=== PATIENT | female | born 1950 | race Caucasian/White ===

== ENCOUNTER 2017-10-06 09:08 | Emergency (ER) | payer MEDICARE, MEDICAID ==
[~2017-10-06] VITALS: Ht 172.7 cm; Wt 94.8 kg
[~2017-10-06 09:08] MED LIST: CYCL-394 PO; ESCI20TA29 PO; FEXO30TA7 PO; IBUP-1984 PO; MELA1LIQ PO; NAPR-56 PO; NORCO10T PO; OMEP40CA37 PO
[2017-10-06] MEDS ORDERED: ketorolac trometh inj. 60 MG/2 ML VIAL IM ONE (09:40)
[2017-10-06] MEDS ORDERED: triamcinolone acetonide 40mg/ml inj IM ONE (10:05)
[2017-10-06] MEDS ORDERED: KETO10TA2 PO (10:17)
[2017-10-06 10:42] VITALS: BP 108/64
== END 2017-10-06 10:43 | disposition home or self-care (01) ==
LOC: ER 09:10
DX: M54.32 Sciatica, left side (principal); M25.552 Pain in left hip; K21.9 Gastro-esophageal reflux disease without esophagitis; G89.29 Other chronic pain; F12.10 Cannabis abuse, uncomplicated; Z90.49 Acquired absence of other specified parts of digestive tract; Z98.890 Other specified postprocedural states; Z88.5 Allergy status to narcotic agent; Z79.899 Other long term (current) drug therapy
CPT/HCPCS: 73502; 96372; 99284; J1885; J3301

== ENCOUNTER 2019-03-01 10:48 | Emergency (ER) | payer MEDICARE, MEDICAID ==
[~2019-03-01] VITALS: Ht 172.7 cm; Wt 100.0 kg
[~2019-03-01 10:48] MED LIST changes: +KETO10TA2 PO; +OMEP40CA13 PO; -OMEP40CA37 PO
[2019-03-01 11:32] VITALS: BP 135/75
[2019-03-01 11:35] LABS: CLARITY,URINE CLOUDY (Clear); COLOR,URINE YELLOW (Yellow); GLUCOSE, URINE NEGATIVE (Neg); KETONES,URINE NEGATIVE (Neg); LEUKOCYTE ESTERASE ,URINE NEGATIVE (Neg); NITRITES, URINE NEGATIVE (Neg); OCCULT BLOOD,URINE NEGATIVE (Neg); PROTEIN,URINE NEGATIVE (Neg)
[2019-03-01 11:37] LABS: UA COLLECTION TYPE CLN CATCH MIDSTREAM
[2019-03-01 11:42] LABS: BACTERIA,URINE FEW /HPF (Neg); MUCUS STRANDS MANY /LPF (Neg); SQUAMOUS EPITHELIAL CELL,UR MANY /LPF (FEW); WBC,URINE 0-4 /HPF (0-4)
[2019-03-01 11:43] LABS: RBC,URINE 0-2 /HPF (0-2)
--- NOTE | 2019-03-01 11:52 | NUR ---
no provider has signed up for this pt yet, will make crn aware.
[2019-03-01] MEDS ORDERED: CYCL-1 PO (12:28)
[2019-03-01] MEDS ORDERED: orphenadrine citrate 60mg/2ml inj. IM ONE (12:30)
[2019-03-01] MEDS ORDERED: HYDROcodone/acetaminophen 10/325mg tab PO ONE (12:30)
== END 2019-03-01 12:49 | disposition home or self-care (01) ==
LOC: ER 10:49
DX: M54.5 Low back pain (principal); R07.81 Pleurodynia; G89.29 Other chronic pain; K21.9 Gastro-esophageal reflux disease without esophagitis; F41.9 Anxiety disorder, unspecified; F12.90 Cannabis use, unspecified, uncomplicated; Z88.6 Allergy status to analgesic agent; Z79.899 Other long term (current) drug therapy; Z90.49 Acquired absence of other specified parts of digestive tract; Z98.890 Other specified postprocedural states; W06.XXXA Fall from bed, initial encounter; Y93.89 Activity, other specified; Y92.89 Other specified places as the place of occurrence of the external cause; Y99.8 Other external cause status
CPT/HCPCS: 81001; 96372; 99283; J2360

== ENCOUNTER 2021-05-15 21:11 | Inpatient (IN) | payer MEDICARE, MEDICAID ==
[~2021-05-15] VITALS: Ht 172.7 cm; Wt 109.1 kg
[~2021-05-15 21:11] MED LIST changes: +ASPI-109 PO; +CALC-331 PO; +CHOL400C8 PO; +CITRUCEL PO; +CYAN500T71 PO; +CYCL-1 PO; +DENO60DI SQ; +ESCI10TA PO; +FERR-119 PO; +HYDR-4353 PO; +MECL-159 PO; +MULT-620 PO; +OMEP20CA15 PO; -OMEP40CA13 PO; +OMEP40CA21 PO; +UBID50TA3 PO; +VITE1000C PO
[2021-05-15] MEDS ORDERED: heparin 10,000 units/1 ML INJ IV ONE (21:20)
[2021-05-15] MEDS ORDERED: heparin 25,000 UNIT/250ml bag 250 ML IV SCH (21:20)
[2021-05-15] MEDS ORDERED: morphine 4 MG/ML inj SYRINge IV ONE (21:20)
[2021-05-15] MEDS ORDERED: ondansetron/PF 4mg/2ml inj IV ONE (21:20)
[2021-05-15] MEDS ORDERED: heparin 10,000 units/1 ML INJ IV PRN (21:20)
[2021-05-15 21:32] LABS: BASOPHILS % (AUTO) 0.5 % (0-1); EOSINOPHILS # (AUTO) 0.3 X10'3 (0-0.9); HEMATOCRIT 39.9 % (35.0-45.0); HEMOGLOBIN 13.1 g/dl (12.0-16.0); MEAN CORPUSCULAR HGB CONC 32.9 g/dL (33.0-36.5); MEAN PLATELET VOLUME 8.1 FL (7.4-10.4); MONOCYTES # (AUTO) 0.4 X10'3 (0-0.9)
[2021-05-15 21:34] LABS: EOSINOPHILS % (AUTO) 3.7 % (0-6); MEAN CORPUSCULAR HEMOGLOBIN 27.4 PG (27.0-31.0); MEAN CORPUSCULAR VOLUME 83.3 FL (78-98); MONOCYTES % (AUTO) 5.5 % (2-12); NEUTROPHILS # (AUTO) 4.3 X10'3 (1.8-7.7); NEUTROPHILS % (AUTO) 53.3 % (42-75); PLATELET COUNT 208 X10'3 (140-440); RED BLOOD COUNT 4.79 X10'6 (4.20-5.60); RED CELL DISTRIBUTION WIDTH 15.6 % (11.5-14.5); WHITE BLOOD COUNT 8.1 X10'3 (4.5-11.0)
[2021-05-15] MEDS ORDERED: iohexol 350MG/ML 100ml bottle IV ONE (21:36)
[2021-05-15] MEDS ORDERED: LIDOcaine 1% (10mg/ml)w/preservative injection 20ml MDV ONE (21:36)
[2021-05-15] MEDS ORDERED: midazolam 1 mg/ML 2ml injection ONE (21:36)
[2021-05-15] MEDS ORDERED: heparin 1,000unit/ml 10ml vial 10 ML ONE (21:36)
[2021-05-15] MEDS ORDERED: fentaNYL/PF 50MCG/1 ML 2ML syringe ONE (21:36)
[2021-05-15] MEDS ORDERED: iohexol 350 MG/1 ML 200ml bottle ONE (21:42)
[2021-05-15 21:45] LABS: ALANINE AMINOTRANSFERASE 51 U/L (12-78); ALBUMIN/GLOBULIN RATIO 0.8 (1.1-1.5); ALKALINE PHOSPHATASE 109 IU/L (46-116); ANION GAP 12 (8-16); ASPARTATE AMINO TRANSFERASE 30 U/L (10-37); BILIRUBIN,TOTAL 0.3 MG/DL (0.1-1.0); BLOOD UREA NITROGEN 14 MG/DL (7-18); BUN/CREATININE RATIO 15.1 (6.6-38.0); CALCIUM 8.5 MG/DL (8.5-10.1); CHLORIDE 106 MMOL/L (99-107); CREATININE 0.93 MG/DL (0.40-0.90); GLUCOSE 142 MG/DL (70-104); POTASSIUM 3.9 MMOL/L (3.5-5.1); SODIUM 143 MMOL/L (135-145); TOTAL CARBON DIOXIDE 25.4 MMOL/L (24-32); TOTAL PROTEIN 6.8 G/DL (6.4-8.2); eGFR 60 ML/MIN
--- NOTE | 2021-05-15 21:47 | NUR ---
matlab developer team at the bedside.
[2021-05-15 21:54] LABS: MAGNESIUM 2.1 MG/DL (1.5-2.4)
[2021-05-15] MEDS ORDERED: hydrocortisone sod succ/PF 100mg/2ml inj. ONE (22:23)
[2021-05-15] MEDS ORDERED: diphenhydrAMINE 50 mg/ml inj ONE (22:23)
[2021-05-15] MEDS ORDERED: atropine 0.1mg/ml 10ml syringe ONE (22:28)
[2021-05-15] MEDS ORDERED: ticagrelor 90mg tablet ONE (22:51)
[2021-05-15 23:30] VITALS: BP 131/65
--- NOTE | 2021-05-15 23:43 | NUR ---
Patient received per bed from porcelain enamel laborer after procedure. patient is alert and oriented. VS taken and recorded.
[2021-05-15 23:49] VITALS: BP 132/63
[2021-05-16] VITALS (12 sets, daily range): BP systolic 108–137; BP diastolic 55–78
[2021-05-16] MEDS ORDERED: HYDROcodone/acetaminophen 5mg/325mg tablet PO PRN (00:25)
[2021-05-16] MEDS ORDERED: proCHLORperazine 10 MG/2 ml inj IV PRN (00:25)
[2021-05-16] MEDS ORDERED: normal saline 1000ml 400 ML IV ONE (00:30)
[2021-05-16] MEDS: HYDROcodone/acetaminophen 10/325mg tab PO PRN ×4 (05:37→19:44)
[2021-05-16 06:31] LABS: BASOPHILS % (AUTO) 0.1 % (0-1); EOSINOPHILS % (AUTO) 0 % (0-6); HEMOGLOBIN 12.6 g/dl (12.0-16.0); LYMPHOCYTES # (AUTO) 0.9 X10'3 (1.1-4.8); LYMPHOCYTES % (AUTO) 15.5 % (21-51); MEAN CORPUSCULAR HEMOGLOBIN 27.4 PG (27.0-31.0); MEAN CORPUSCULAR HGB CONC 33.3 g/dL (33.0-36.5); MEAN CORPUSCULAR VOLUME 82.3 FL (78-98); MEAN PLATELET VOLUME 7.9 FL (7.4-10.4); MONOCYTES # (AUTO) 0.2 X10'3 (0-0.9); MONOCYTES % (AUTO) 2.5 % (2-12); NEUTROPHILS % (AUTO) 81.9 % (42-75); PLATELET COUNT 196 X10'3 (140-440); RED BLOOD COUNT 4.61 X10'6 (4.20-5.60); RED CELL DISTRIBUTION WIDTH 15.6 % (11.5-14.5); WHITE BLOOD COUNT 6.1 X10'3 (4.5-11.0)
--- NOTE | 2021-05-16 07:08 | NUR ---
Patient in room PCU 3013. I have received report from Aubrey HENDERSON and had the opportunity to ask questions and assume patient care. pt supine in bed, endorsing wanting breakfast. pt with pain to left hip, minimal pain to right groin puncture site. no hematoma present, though small amount roman drainage on gauze. no s/sx complication s/p heart cath. pt alert, no sob, safety education completed and measures in place. no s/sx acute distress
[2021-05-16] MEDS: ticagrelor 90mg tablet PO SCH ×2 (09:03→19:46)
[2021-05-16] MEDS: metoprolol tartrate 25mg tablet PO SCH ×2 (09:03→19:46)
[2021-05-16] MEDS: ondansetron/PF 4mg/2ml inj IV PRN ×2 (09:48→19:46)
[2021-05-16 10:39] LABS: ANION GAP 10 (8-16); BLOOD UREA NITROGEN 14 MG/DL (7-18); BUN/CREATININE RATIO 17.9 (6.6-38.0); CALCIUM 8.9 MG/DL (8.5-10.1); CHLORIDE 106 MMOL/L (99-107); CHOL/HDL RATIO 3.4 (0.00-4.99); CHOLESTEROL 182 MG/DL (0-200); CREATININE 0.78 MG/DL (0.40-0.90); GLUCOSE 145 MG/DL (70-104); HDL CHOLESTEROL 53 MG/DL (35-60); LDL CHOLESTEROL 113 MG/DL (50-100); POTASSIUM 4.4 MMOL/L (3.5-5.1); SODIUM 140 MMOL/L (135-145); TOTAL CARBON DIOXIDE 24.4 MMOL/L (24-32); TRIGLYCERIDES 61 MG/DL (20-135); eGFR 73 ML/MIN
[2021-05-16] MEDS ORDERED: MELA5CAP PO (12:53)
[2021-05-16] MEDS ORDERED: ROMO105S INJ (12:53)
[2021-05-16] MEDS ORDERED: ESCI20TA39 PO (12:53)
[2021-05-16] MEDS ORDERED: ARIP10TA8 PO (12:53)
[2021-05-16] MEDS ORDERED: CALC-723 PO (12:53)
[2021-05-16] MEDS ORDERED: OMEP40CA21 PO (12:53)
[2021-05-16] MEDS ORDERED: HYDROcodone/acetaminophen 10/325mg tab PO PRN (14:00)
--- NOTE | 2021-05-16 14:25 | NUR ---
pharmacy paged for abilify dose.
[2021-05-16] MEDS: aspirin 81mg tab.chew PO SCH (14:38)
[2021-05-16] MEDS: ESCITALOPRAM OXALATE 5 MG TABLET PO SCH (14:39)
[2021-05-16] MEDS: ARIPIPRAZOLE 10 MG TABLET PO SCH (15:32)
[2021-05-16] MEDS ORDERED: pantoprazole 40mg Tablet.DR PO ONE (17:10)
--- NOTE | 2021-05-16 18:28 | NUR ---
Problems reprioritized. Patient report given, questions answered & plan of care reviewed with Shayna HENDERSON. Pt content sitting up working on dinner. no s/sx acute distress
[2021-05-16] MEDS: calcium carbonate/vitamin D3 tablet PO SCH (19:44)
[2021-05-16] MEDS ORDERED: loperamide 2mg capsule PO PRN (22:35)
[2021-05-17 02:00] VITALS: BP 142/51
[2021-05-17] MEDS: HYDROcodone/acetaminophen 10/325mg tab PO PRN ×2 (05:17→09:41)
[2021-05-17 06:43] LABS: BASOPHILS % (AUTO) 0.4 % (0-1); EOSINOPHILS # (AUTO) 0.3 X10'3 (0-0.9); EOSINOPHILS % (AUTO) 4.2 % (0-6); HEMOGLOBIN 12.8 g/dl (12.0-16.0); LYMPHOCYTES # (AUTO) 2.5 X10'3 (1.1-4.8); LYMPHOCYTES % (AUTO) 32.1 % (21-51); MEAN CORPUSCULAR HEMOGLOBIN 27.5 PG (27.0-31.0); MEAN CORPUSCULAR HGB CONC 32.8 g/dL (33.0-36.5); MEAN CORPUSCULAR VOLUME 83.9 FL (78-98); MEAN PLATELET VOLUME 8.1 FL (7.4-10.4); MONOCYTES # (AUTO) 0.5 X10'3 (0-0.9); MONOCYTES % (AUTO) 6.9 % (2-12); NEUTROPHILS # (AUTO) 4.4 X10'3 (1.8-7.7); NEUTROPHILS % (AUTO) 56.4 % (42-75); PLATELET COUNT 189 X10'3 (140-440); RED BLOOD COUNT 4.65 X10'6 (4.20-5.60); RED CELL DISTRIBUTION WIDTH 15.7 % (11.5-14.5); WHITE BLOOD COUNT 7.8 X10'3 (4.5-11.0)
--- NOTE | 2021-05-17 06:44 | NUR ---
Patient in room PCU 3013. I have received report from Shayna HENDERSON and had the opportunity to ask questions and assume patient care. Pt semi fowlers in bed, chest rising and falling evenly, 02/nc/2lpm. no s/sx acute distress. safety measures in place.
[2021-05-17] MEDS ORDERED: pantoprazole 40mg Tablet.DR PO SCH (07:30)
[2021-05-17] MEDS ORDERED: atorvastatin 20mg tablet PO SCH (08:00)
[2021-05-17] MEDS: aspirin 81mg tab.chew PO SCH (08:03)
[2021-05-17] MEDS: ESCITALOPRAM OXALATE 5 MG TABLET PO SCH (08:03)
[2021-05-17] MEDS: ARIPIPRAZOLE 10 MG TABLET PO SCH (08:03)
[2021-05-17] MEDS: ticagrelor 90mg tablet PO SCH (08:03)
[2021-05-17] MEDS: calcium carbonate/vitamin D3 tablet PO SCH (08:03)
[2021-05-17 08:04] VITALS: BP_SYST 100
[2021-05-17] MEDS: metoprolol tartrate 25mg tablet PO SCH (08:04)
[2021-05-17 09:40] LABS: ANION GAP 9 (8-16); BLOOD UREA NITROGEN 17 MG/DL (7-18); BUN/CREATININE RATIO 19.3 (6.6-38.0); CALCIUM 9.5 MG/DL (8.5-10.1); CHLORIDE 104 MMOL/L (99-107); CREATININE 0.88 MG/DL (0.40-0.90); GLUCOSE 95 MG/DL (70-104); POTASSIUM 4.3 MMOL/L (3.5-5.1); SODIUM 136 MMOL/L (135-145); TOTAL CARBON DIOXIDE 23.5 MMOL/L (24-32); eGFR 64 ML/MIN
[2021-05-17] MEDS ORDERED: ATOR20TA66 PO (10:25)
[2021-05-17] MEDS ORDERED: LOP25T PO (10:25)
[2021-05-17] MEDS ORDERED: TICA90TA PO (10:25)
[2021-05-17] MEDS ORDERED: ASPI81TA53 PO (10:25)
--- NOTE | 2021-05-17 12:25 | NUR ---
Pt stable for discharge per MD orders. All discharge instructions reviewed with pt and her daughter. all questions answered. new rx escripted and then subsequently called into [facility] [address]. pt has existing follow up appointment in two weeks with PCP. PIV discontinued. Cannula intact. youth nutritional monitor discontinued. belongings collected and sent with the pt. pt wheeled to the lobby accompanied by her daughter. no s/sx acute distress. pt left in private vehicle.
[2021-05-25] MEDS ORDERED: FURO-150 PO (10:36)
[2021-05-25] MEDS ORDERED: POTA10TA37 PO (10:36)
== END 2021-05-17 14:30 | disposition home or self-care (01) | DRG 246 ==
LOC: ER 21:12 → PCU 3S 22:50 → UNDOADMIN 22:50
PROVIDERS: ADMIT Internal Medicine Interventional Cardiology; ATTEND Internal Medicine Interventional Cardiology
PROC: 027034Z Dilation of Coronary Artery, One Artery with Drug-eluting Intraluminal Device, Percutaneous Approach (ICD-10-PCS; principal; 2021-05-15)
PROC: 4A023N7 Measurement of Cardiac Sampling and Pressure, Left Heart, Percutaneous Approach (ICD-10-PCS; 2021-05-15)
PROC: B2181ZZ Fluoroscopy of Left Internal Mammary Bypass Graft using Low Osmolar Contrast (ICD-10-PCS; 2021-05-15)
PROC: B2171ZZ Fluoroscopy of Right Internal Mammary Bypass Graft using Low Osmolar Contrast (ICD-10-PCS; 2021-05-15)
PROC: B2111ZZ Fluoroscopy of Multiple Coronary Arteries using Low Osmolar Contrast (ICD-10-PCS; 2021-05-15)
PROC: B2131ZZ Fluoroscopy of Multiple Coronary Artery Bypass Grafts using Low Osmolar Contrast (ICD-10-PCS; 2021-05-15)
DX: I21.11 ST elevation (STEMI) myocardial infarction involving right coronary artery (principal); I50.31 Acute diastolic (congestive) heart failure; I25.10 Atherosclerotic heart disease of native coronary artery without angina pectoris; F12.90 Cannabis use, unspecified, uncomplicated; F41.9 Anxiety disorder, unspecified; G47.33 Obstructive sleep apnea (adult) (pediatric); G89.29 Other chronic pain; K21.9 Gastro-esophageal reflux disease without esophagitis; E66.01 Morbid (severe) obesity due to excess calories; Z96.649 Presence of unspecified artificial hip joint; M19.90 Unspecified osteoarthritis, unspecified site; I35.0 Nonrheumatic aortic (valve) stenosis; M54.9 Dorsalgia, unspecified; E78.5 Hyperlipidemia, unspecified; I10 Essential (primary) hypertension; Z20.822 Contact with and (suspected) exposure to COVID-19; Z87.891 Personal history of nicotine dependence; Z90.49 Acquired absence of other specified parts of digestive tract; Z95.1 Presence of aortocoronary bypass graft; Z88.5 Allergy status to narcotic agent; Z91.041 Radiographic dye allergy status; Z68.36 Body mass index [BMI] 36.0-36.9, adult; Z79.899 Other long term (current) drug therapy; Z79.82 Long term (current) use of aspirin; Z71.3 Dietary counseling and surveillance
CPT/HCPCS: 93306; 93454; 99291; C9606; 36415; 71045; 80048; 80053; 80061; 83735; 83880; 84484; 85025; 85610; 87081; 87635; 93005; 99152; 99153; A4620; A6258; C1725; C1751; C1760; C1769; C1874; C9803; G0378; J0461; J1200; J1644; J1720; J2250; J2270; J2405; J3010; J3490; J7030; Q9967

== ENCOUNTER 2022-04-20 14:55 | Emergency (ER) | payer MEDICARE, MEDICAID ==
[~2022-04-20] VITALS: Ht 172.7 cm; Wt 113.0 kg
[~2022-04-20 14:55] MED LIST changes: +ARIP10TA14 PO; -ASPI-109 PO; +ASPI81TA53 PO; +ATOR20TA66 PO; -CALC-331 PO; -CHOL400C8 PO; -CITRUCEL PO; -CYAN500T71 PO; -CYCL-1 PO; -CYCL-394 PO; -DENO60DI SQ; -ESCI10TA PO; -ESCI20TA29 PO; +ESCI20TA39 PO; -FERR-119 PO; -FEXO30TA7 PO; +FURO-150 PO; -HYDR-4353 PO; -IBUP-1984 PO; -KETO10TA2 PO; -MECL-159 PO; -MELA1LIQ PO; +MELA5CAP PO; -MULT-620 PO; -NAPR-56 PO; -OMEP20CA15 PO; +POTA-206 PO; +ROMO105S INJ; +TICA90TA PO; -UBID50TA3 PO; -VITE1000C PO
--- NOTE | 2022-04-20 17:40 | NUR ---
Pt with an episode of dyspnea and expiratory wheezing. O2 od 89% on room air. Pt placed on 4L nasal cannula which she states she is usually on at home. She states she wears home o2 90% of the time but she does not have travel O2. Pt's O2 sats improved to 97% on 4L of oxygen.
[2022-04-20 17:41] VITALS: BP 100/77
== END 2022-04-20 20:33 | disposition home or self-care (01) ==
LOC: ER 14:56
DX: Z00.00 Encounter for general adult medical examination without abnormal findings (principal); K21.9 Gastro-esophageal reflux disease without esophagitis; G89.29 Other chronic pain; M54.50 Low back pain, unspecified; Z91.041 Radiographic dye allergy status; Z88.5 Allergy status to narcotic agent; Z88.8 Allergy status to other drugs, medicaments and biological substances; Z98.890 Other specified postprocedural states
CPT/HCPCS: 99281

== ENCOUNTER 2022-05-03 22:53 | Inpatient (IN) | payer MEDICARE, MEDICAID ==
[~2022-05-03] VITALS: Ht 170.2 cm; Wt 113.6 kg
[2022-05-03 23:43] LABS: BASOPHILS % (AUTO) 0.3 % (0-1); EOSINOPHILS # (AUTO) 0.3 X10'3 (0-0.9); EOSINOPHILS % (AUTO) 3.3 % (0-6); HEMATOCRIT 36.9 % (35.0-45.0); HEMOGLOBIN 11.9 g/dl (12.0-16.0); LYMPHOCYTES % (AUTO) 21.9 % (21-51); MEAN CORPUSCULAR HEMOGLOBIN 25.8 PG (27.0-31.0); MEAN CORPUSCULAR HGB CONC 32.3 g/dL (33.0-36.5); MEAN PLATELET VOLUME 7.8 FL (7.4-10.4); MONOCYTES # (AUTO) 0.5 X10'3 (0-0.9); MONOCYTES % (AUTO) 5.6 % (2-12); NEUTROPHILS # (AUTO) 6.3 X10'3 (1.8-7.7); NEUTROPHILS % (AUTO) 68.9 % (42-75); PLATELET COUNT 215 X10'3 (140-440); RED BLOOD COUNT 4.61 X10'6 (4.20-5.60); RED CELL DISTRIBUTION WIDTH 16.7 % (11.5-14.5); WHITE BLOOD COUNT 9.1 X10'3 (4.5-11.0)
[2022-05-03 23:50] LABS: ALANINE AMINOTRANSFERASE 9 U/L (12-78); ALBUMIN 3.1 G/DL (3.4-5.0); ALBUMIN/GLOBULIN RATIO 0.9 (1.1-1.5); ALKALINE PHOSPHATASE 101 IU/L (46-116); ANION GAP 4 (8-16); ASPARTATE AMINO TRANSFERASE 19 U/L (10-37); BILIRUBIN,TOTAL 0.4 MG/DL (0.1-1.0); BLOOD UREA NITROGEN 16 MG/DL (7-18); BUN/CREATININE RATIO 18.8 (6.6-38.0); CHLORIDE 105 MMOL/L (99-107); CREATININE 0.85 MG/DL (0.40-0.90); GLUCOSE 114 MG/DL (70-104); POTASSIUM 3.6 MMOL/L (3.5-5.1); SODIUM 138 MMOL/L (135-145); TOTAL CARBON DIOXIDE 28.8 MMOL/L (24-32); TOTAL PROTEIN 6.7 G/DL (6.4-8.2); eGFR 66 ML/MIN
[2022-05-04] MEDS ORDERED: furosemide 10 MG/1 ML 10ml inj IV ONE (00:35)
[2022-05-04 01:32] LABS: ABG BASE EXCESS 1.8 mmol/L (-2.0-2.0); ABG HCO3 26.5 mmol/L (22.0-26.0); ABG OXYGEN SATURATION 94.3 % (94-97); ABG PCO2 (T) 41.3 mmHg (32.0-45.0); ABG PO2 (T) 71.3 mmHg (75.0-100.0); ALLEN'S TEST POSITIVE; FCOHb 0.7 % (0.0-3.9); FMetHb 0.1 % (0.0-1.5); FO2Hb 93.5 % (94-97); PATIENT TEMPERATURE 36.8; TOTAL HEMOGLOBIN 13.3 G/dl (12.0-16.0)
[2022-05-04] MEDS ORDERED: ondansetron/PF 4mg/2ml inj IV PRN (01:55)
[2022-05-04] MEDS ORDERED: acetaminophen 325mg tablet PO PRN ×2 (01:55)
[2022-05-04] MEDS ORDERED: morphine 2 MG/ML inj. syringe IV PRN ×2 (01:55)
[2022-05-04] MEDS ORDERED: magnesium hydroxide 30ml (MOM) UD suspension PO PRN (01:55)
[2022-05-04] MEDS ORDERED: mag hydrox/Alum hydrox/simeth 30ml oral suspension PO PRN (01:55)
--- NOTE | 2022-05-04 05:03 | NUR ---
pt placed on hospital bed
[2022-05-04] MEDS: enoxaparin 40mg/0.4ml syringe SUBCUT SCH (09:51)
[2022-05-04] MEDS: docusate sod 100mg capsule PO SCH ×2 (09:51→19:33)
[2022-05-04] MEDS: furosemide 40mg/4ml inj IV SCH ×2 (09:51→19:36)
[2022-05-04 17:20] VITALS: BP 93/75
--- NOTE | 2022-05-04 17:20 | NUR ---
Pt transferred from ER to 302 via bed. Pt awake and alert. VSS. Pt denied any pain or discomfort at this time. Call light within reach and instructed to use for assistance.
[2022-05-04 18:00] VITALS: BP 109/89
[2022-05-04] MEDS: HYDROcodone/acetaminophen 5mg/325mg tablet PO PRN (19:08)
[2022-05-04] MEDS ORDERED: NYST15OI14 TOP (20:25)
[2022-05-04] MEDS ORDERED: ALBU18HF2 PO (20:25)
[2022-05-04] MEDS ORDERED: FURO20TA4 PO (20:25)
[2022-05-04] MEDS ORDERED: ARIP10TA57 PO (20:25)
[2022-05-04] MEDS ORDERED: HYDR-3972 PO (20:25)
[2022-05-04] MEDS ORDERED: POTA10CA45 PO (20:25)
[2022-05-04] MEDS ORDERED: CLOP75TA34 PO (20:25)
[2022-05-04] MEDS ORDERED: ATOR40TA72 PO (20:25)
[2022-05-04 22:06] VITALS: BP 118/62
[2022-05-05] MEDS: HYDROcodone/acetaminophen 5mg/325mg tablet PO PRN ×2 (00:12→07:15)
[2022-05-05 01:55] VITALS: BP 141/64
[2022-05-05 06:00] VITALS: BP 141/75
[2022-05-05 07:00] LABS: BASOPHILS % (AUTO) 0.3 % (0-1); EOSINOPHILS # (AUTO) 0.3 X10'3 (0-0.9); EOSINOPHILS % (AUTO) 3.1 % (0-6); HEMATOCRIT 38.5 % (35.0-45.0); HEMOGLOBIN 12.3 g/dl (12.0-16.0); LYMPHOCYTES # (AUTO) 2.5 X10'3 (1.1-4.8); LYMPHOCYTES % (AUTO) 30.2 % (21-51); MEAN CORPUSCULAR HEMOGLOBIN 25.9 PG (27.0-31.0); MEAN CORPUSCULAR HGB CONC 31.9 g/dL (33.0-36.5); MONOCYTES # (AUTO) 0.6 X10'3 (0-0.9); MONOCYTES % (AUTO) 7.4 % (2-12); NEUTROPHILS # (AUTO) 4.9 X10'3 (1.8-7.7); PLATELET COUNT 231 X10'3 (140-440); RED BLOOD COUNT 4.76 X10'6 (4.20-5.60); RED CELL DISTRIBUTION WIDTH 16.5 % (11.5-14.5); WHITE BLOOD COUNT 8.3 X10'3 (4.5-11.0)
[2022-05-05] MEDS: furosemide 40mg/4ml inj IV SCH (07:14)
[2022-05-05] MEDS: docusate sod 100mg capsule PO SCH (07:15)
[2022-05-05] MEDS: enoxaparin 40mg/0.4ml syringe SUBCUT SCH (07:15)
[2022-05-05 07:23] LABS: ALBUMIN 3.1 G/DL (3.4-5.0); ANION GAP 6 (8-16); BLOOD UREA NITROGEN 24 MG/DL (7-18); BUN/CREATININE RATIO 27.3 (6.6-38.0); CALCIUM 9.5 MG/DL (8.5-10.1); CHLORIDE 102 MMOL/L (99-107); CREATININE 0.88 MG/DL (0.40-0.90); GLUCOSE 122 MG/DL (70-104); POTASSIUM 3.6 MMOL/L (3.5-5.1); SODIUM 138 MMOL/L (135-145); TOTAL CARBON DIOXIDE 30.5 MMOL/L (24-32); eGFR 64 ML/MIN
[2022-05-05] MEDS ORDERED: FURO20TA4 PO (10:32)
[2022-05-05] MEDS ORDERED: ALBU18HF2 PO (10:32)
[2022-05-05] MEDS ORDERED: PRED10TA23 PO (10:32)
--- NOTE | 2022-05-05 11:45 | NUR ---
pt discharged in stable condition via wheelchair to family waiting on lobby. discharge instructions and education reviewed with pt. questions/concerns addressed. tele and IV d/c'd.
== END 2022-05-05 11:44 | disposition home or self-care (01) | DRG 189 ==
LOC: ER 22:54 → ED HOLD 05-04 01:57 → EDBEDREQ 05-04 15:35 → PCU 3S 05-04 17:08
PROVIDERS: ADMIT Internal Medicine; ATTEND Internal Medicine
DX: J96.21 Acute and chronic respiratory failure with hypoxia (principal); E66.01 Morbid (severe) obesity due to excess calories; E78.5 Hyperlipidemia, unspecified; I25.10 Atherosclerotic heart disease of native coronary artery without angina pectoris; I27.81 Cor pulmonale (chronic); Z96.659 Presence of unspecified artificial knee joint; F32.A Depression, unspecified; F41.9 Anxiety disorder, unspecified; G89.29 Other chronic pain; K21.9 Gastro-esophageal reflux disease without esophagitis; M54.9 Dorsalgia, unspecified; Z96.643 Presence of artificial hip joint, bilateral; I50.9 Heart failure, unspecified; Z68.39 Body mass index [BMI] 39.0-39.9, adult; I25.2 Old myocardial infarction; Z79.02 Long term (current) use of antithrombotics/antiplatelets; Z79.899 Other long term (current) drug therapy; Z87.891 Personal history of nicotine dependence; Z90.49 Acquired absence of other specified parts of digestive tract; Z95.1 Presence of aortocoronary bypass graft; Z88.5 Allergy status to narcotic agent; Z91.041 Radiographic dye allergy status
CPT/HCPCS: 36415; 36600; 71045; 80048; 80053; 82803; 83880; 84484; 85018; 85025; 87081; 93005; 93306; 96374; 99285; G0378; J1650; J1940

== ENCOUNTER 2022-07-18 12:11 | Emergency (ER) | payer MEDICARE, MEDICAID ==
[~2022-07-18] VITALS: Ht 172.7 cm; Wt 113.6 kg
[~2022-07-18 12:11] MED LIST changes: +ALBU18HF2 PO; -ARIP10TA14 PO; +ARIP10TA57 PO; +ASPI-1265 PO; -ASPI81TA53 PO; -ATOR20TA66 PO; +ATOR40TA72 PO; +CLOP75TA34 PO; +EMPA10TA PO; +HYDR-3972 PO; +LEVO-65 PO; -MELA5CAP PO; -NORCO10T PO; +NYST15OI14 TOP; +OMEP20TA43 PO; -OMEP40CA21 PO; -POTA-206 PO; +POTA10CA45 PO; +PRED10TA23 PO; -ROMO105S INJ; -TICA90TA PO
[2022-07-18] MEDS ORDERED: HYDROcodone/acetaminophen 10/325mg tab PO ONE (12:50)
[2022-07-18] MEDS ORDERED: albuterol 2.5 MG/3 ML nebule NEB ONE (12:50)
[2022-07-18] MEDS ORDERED: ketorolac trometh. 30mg/ml inj. IM ONE (12:50)
[2022-07-18 15:10] VITALS: BP 149/85
== END 2022-07-18 15:12 | disposition home or self-care (01) ==
LOC: ER 12:11
DX: G89.29 Other chronic pain (principal); M54.59 Other low back pain; J44.9 Chronic obstructive pulmonary disease, unspecified; I11.0 Hypertensive heart disease with heart failure; F41.9 Anxiety disorder, unspecified; K21.9 Gastro-esophageal reflux disease without esophagitis; Z88.5 Allergy status to narcotic agent; Z88.8 Allergy status to other drugs, medicaments and biological substances; Z79.899 Other long term (current) drug therapy; Z79.82 Long term (current) use of aspirin
CPT/HCPCS: 94640; 96372; 99284; J1885; 94760

== ENCOUNTER 2022-08-23 13:02 | Inpatient (IN) | payer MEDICARE, MEDICAID ==
[~2022-08-23] VITALS: Ht 177.8 cm; Wt 113.6 kg
[~2022-08-23 13:02] MED LIST changes: -LEVO-65 PO; -PRED10TA23 PO
[2022-08-23 14:00] LABS: BASOPHILS % (AUTO) 0.1 % (0-1); EOSINOPHILS % (AUTO) 0.1 % (0-6); HEMATOCRIT 38.1 % (35.0-45.0); HEMOGLOBIN 12.1 g/dl (12.0-16.0); LYMPHOCYTES # (AUTO) 1.9 X10'3 (1.1-4.8); LYMPHOCYTES % (AUTO) 7.9 % (21-51); MEAN CORPUSCULAR HGB CONC 31.6 g/dL (33.0-36.5); MEAN PLATELET VOLUME 7.9 FL (7.4-10.4); MONOCYTES % (AUTO) 8.5 % (2-12); NEUTROPHILS % (AUTO) 83.4 % (42-75); PLATELET COUNT 221 X10'3 (140-440); RED BLOOD COUNT 5.02 X10'6 (4.20-5.60); RED CELL DISTRIBUTION WIDTH 20.5 % (11.5-14.5); WHITE BLOOD COUNT 23.9 X10'3 (4.5-11.0)
[2022-08-23 14:17] LABS: ALANINE AMINOTRANSFERASE 27 U/L (12-78); ALBUMIN 2.9 G/DL (3.4-5.0); ALBUMIN/GLOBULIN RATIO 0.9 (1.1-1.5); ALKALINE PHOSPHATASE 83 IU/L (46-116); ANION GAP 5 (8-16); ASPARTATE AMINO TRANSFERASE 37 U/L (10-37); BILIRUBIN,TOTAL 0.9 MG/DL (0.1-1.0); BLOOD UREA NITROGEN 23 MG/DL (7-18); CALCIUM 9.2 MG/DL (8.5-10.1); CHLORIDE 106 MMOL/L (99-107); CREATININE 0.82 MG/DL (0.40-0.90); GLUCOSE 151 MG/DL (70-104); POTASSIUM 3.9 MMOL/L (3.5-5.1); SODIUM 141 MMOL/L (135-145); TOTAL CARBON DIOXIDE 29.8 MMOL/L (24-32); TOTAL PROTEIN 6.1 G/DL (6.4-8.2); eGFR 69 ML/MIN
[2022-08-23] MEDS ORDERED: potassium Cl 20 mEq SR tablet PO STA (14:56)
[2022-08-23] MEDS ORDERED: furosemide 10 MG/1 ML 10ml inj IV ONE (15:00)
[2022-08-23] MEDS ORDERED: ipratropium/albuterol 3ml nebule NEB ONE (15:05)
[2022-08-23] MEDS ORDERED: methylPREDNISolone sod succ 125mg/2ml vial IV ONE (15:05)
[2022-08-23] MEDS ORDERED: vancomycin/NS 1 GM ADD-VANTAGE 250 ML IV ONE (15:10)
[2022-08-23] MEDS ORDERED: piperacillin/tazo 3.375gm/50ml 50 ML IV ONE (15:10)
[2022-08-23 15:21] LABS: ANISOCYTOSIS 3+; MICROCYTOSIS 1+; PLATELET ESTIMATE NORMAL; TOTAL CELLS COUNTED 100
[2022-08-23 15:22] LABS: ELLIPTOCYTES FEW
[2022-08-23 16:16] LABS: ABG BASE EXCESS 0.9 mmol/L (-2.0-2.0); ABG HCO3 24.5 mmol/L (22.0-26.0); ABG OXYGEN SATURATION 72.1 % (94-97); ABG PO2 (T) 36.6 mmHg (75.0-100.0); ALLEN'S TEST POSITIVE; FCOHb 1.4 % (0.0-3.9); FLOW 4 L/min; FMetHb 0.4 % (0.0-1.5); FO2Hb 70.8 % (94-97); TOTAL HEMOGLOBIN 13.4 G/dl (12.0-16.0)
[2022-08-23] MEDS ORDERED: ASPI-10 PO (16:21)
[2022-08-23] MEDS ORDERED: MELA3TAB41 PO (16:22)
[2022-08-23 16:44] LABS: ABG BASE EXCESS 2.5 mmol/L (-2.0-2.0); ABG HCO3 25.5 mmol/L (22.0-26.0); ABG OXYGEN SATURATION 90.7 % (94-97); ABG PCO2 (T) 34.5 mmHg (32.0-45.0); ABG PO2 (T) 56.1 mmHg (75.0-100.0); ALLEN'S TEST POSITIVE; FCOHb 1.2 % (0.0-3.9); FLOW 4 L/min; FMetHb 0.3 % (0.0-1.5); FO2Hb 89.3 % (94-97); TOTAL HEMOGLOBIN 13.1 G/dl (12.0-16.0)
--- NOTE | 2022-08-23 19:30 | NUR ---
assumed care after recieving report from Patsy Chester LVN. Pt. incontinent of lrg amt urine, linens changed and placed in gown, pure wick had been misplaced. Pt. confused and having difficulty following command. RT paged by JAZMINE for BiPap to be placed on patient.
[2022-08-23] MEDS ORDERED: potassium Cl 40MEQ/1/2NS 520ml 520 ML IV PRN (20:10)
[2022-08-23] MEDS ORDERED: ondansetron/PF 4mg/2ml inj IV PRN (20:10)
[2022-08-23] MEDS ORDERED: potassium Cl 20 mEq SR tablet PO PRN ×2 (20:10)
[2022-08-23] MEDS ORDERED: mag hydrox/Alum hydrox/simeth 30ml oral suspension PO PRN (20:10)
[2022-08-23] MEDS ORDERED: HYDROcodone/acetaminophen 5mg/325mg tablet PO PRN (20:10)
[2022-08-23] MEDS ORDERED: acetaminophen 325mg tablet PO PRN (20:10)
[2022-08-23] MEDS ORDERED: magnesium Cl slow-release 64mg tablet PO PRN (20:10)
[2022-08-23] MEDS ORDERED: magnesium 4gm in 100ml NS 100 ML IV PRN (20:10)
[2022-08-23] MEDS ORDERED: PERFLUTREN PROTEIN-A MICROSPHR (Optison) 0.22 MG/ML 3ML VIAL IV PRN (20:10)
[2022-08-23] MEDS ORDERED: magnesium hydroxide 30ml (MOM) UD suspension PO PRN (20:10)
[2022-08-23] MEDS ORDERED: nystatin 15 GM ointment TP PRN (20:15)
[2022-08-23] MEDS ORDERED: dextrose 50%-water 50ml dispensing syringe IV PRN ×2 (20:15)
[2022-08-23] MEDS ORDERED: HYDROcodone/acetaminophen 10/325mg tab PO PRN (20:15)
[2022-08-23] MEDS ORDERED: insulin Lispro (HumaLOG) vial - multi-dose SQ SCH (20:15)
[2022-08-23] MEDS ORDERED: MESSAGE TO PHARMACY PO ONE (20:15)
[2022-08-23] MEDS ORDERED: DEXTROSE 15 GM of carb/4 tabs (each vial/BOTTLE has 4 tablets) PO PRN ×2 (20:15)
[2022-08-23] MEDS ORDERED: glucagon, human recombinant 1mg kit SUBCUT PRN (20:15)
[2022-08-23] MEDS ORDERED: albuterol 2.5 MG/3 ML nebule NEB PRN (20:30)
[2022-08-23] MEDS ORDERED: pantoprazole 40mg Tablet.DR PO PRN (20:30)
[2022-08-23] MEDS ORDERED: heparin 10,000 units/1 ML INJ IV ONE (21:05)
[2022-08-23] MEDS: heparin 25,000 UNIT/250ml bag 250 ML IV PRN (22:48)
[2022-08-23] MEDS: Melatonin 3mg tablet PO SCH (22:49)
--- NOTE | 2022-08-23 23:15 | NUR ---
during report I asked about patient Troponin being elevated at 3000. Blanca HENDERSON from ER stated that Dr. Lofton is aware of numbers and isn't worried
--- NOTE | 2022-08-23 23:15 | NUR ---
Patient in room ED 14. I have received report from Blanca HENDERSON from ER and had the opportunity to ask questions and assume patient care. sales and distribution clerk will assume all patient care that is out of my scope.
[2022-08-23 23:33] VITALS: BP 110/75
--- NOTE | 2022-08-24 00:49 | NUR ---
Called Dr. Lofton and left message on machine to return call. Waiting on return call to give MD critical lab valves on patient
--- NOTE | 2022-08-24 01:08 | NUR ---
wound caare consult placed on patient per protocol. I called wound care and left message on machine.
--- NOTE | 2022-08-24 01:22 | NUR ---
per her daughter, Kristina patient does not want aggressive treatment like intubation or shock to the heart. She said there is paperwork at home stating this and she will look for it and bring to the hospital in the morning if she can find it. I called Dr. Lofton and informed him of what the daughter states but he said; he talked to the patient and she verbalized that she wanted everything done to extend her life. I asked the nursing information systems supervisor to see if she can find any advance directives from previous admits and print them out for pt's chart. Addendum: 08/24/22 at 0135 by Gregroia Cabrera RN Amended: Links added.
--- NOTE | 2022-08-24 01:28 | NUR ---
unable to complete the admission questions due to patient with bipap and unable to carry on a conversation. Addendum: 08/24/22 at 0135 by Gregoria Cabrera RN Amended: Links added.
[2022-08-24 02:00] VITALS: BP 149/85
--- NOTE | 2022-08-24 02:00 | NUR ---
She was pulling at her bipap and she was able to tell me that she wanted to drink, I took off the mask and did oral care with evelia with cold water to it. She did not drink any water since she is npo and her tongue was dry and small amount of white on the tongue but it came off with the sponge. Addendum: 08/24/22 at 0227 by Gregoria Cabrera RN Amended: Links added.
--- NOTE | 2022-08-24 02:45 | NUR ---
deputy brand inspector let me know that Dr. Lofton called back and critical results were given.
--- NOTE | 2022-08-24 02:56 | NUR ---
Problems reprioritized. Patient report given, questions answered & plan of care reviewed with Gregoria HENDERSON.
[2022-08-24] MEDS: vancomycin/NS 1 GM ADD-VANTAGE 250 ML IV SCH ×2 (03:26→15:09)
--- NOTE | 2022-08-24 04:08 | NUR ---
Just saw an order from 1999 to continue ed trops on patient, I called Dr. Lofton since she has not had one since around 1349 on 08/23. I assumed care of patient at 0300 from SUPERVISOR THROWING DEPARTMENT and the ER nurse per Jeny when she got report from ER was told that MD was aware of elevated troponin but no orders. He said yes the patient was to have trops done and that Dr. Millan is taking her to the clinical lab clerk today but no time is known. Dr. Lofton said it is ok to draw the trop at 0500 with her timed PTT and then do every 3 hours times 2 after that.
[2022-08-24 06:00] VITALS: BP 111/71
[2022-08-24 06:02] LABS: BASOPHILS % (AUTO) 0.1 % (0-1); EOSINOPHILS % (AUTO) 0 % (0-6); HEMATOCRIT 38.9 % (35.0-45.0); HEMOGLOBIN 12.6 g/dl (12.0-16.0); LYMPHOCYTES # (AUTO) 1.2 X10'3 (1.1-4.8); LYMPHOCYTES % (AUTO) 4.7 % (21-51); MEAN CORPUSCULAR HEMOGLOBIN 24.7 PG (27.0-31.0); MEAN CORPUSCULAR HGB CONC 32.5 g/dL (33.0-36.5); MEAN CORPUSCULAR VOLUME 76.1 FL (78-98); MEAN PLATELET VOLUME 8.3 FL (7.4-10.4); MONOCYTES # (AUTO) 1.7 X10'3 (0-0.9); MONOCYTES % (AUTO) 6.9 % (2-12); NEUTROPHILS # (AUTO) 21.9 X10'3 (1.8-7.7); NEUTROPHILS % (AUTO) 88.3 % (42-75); PLATELET COUNT 197 X10'3 (140-440); RED BLOOD COUNT 5.11 X10'6 (4.20-5.60); WHITE BLOOD COUNT 24.8 X10'3 (4.5-11.0)
[2022-08-24] MEDS: heparin 10,000 units/1 ML INJ IV PRN ×2 (06:10→12:23)
[2022-08-24 06:18] LABS: ALANINE AMINOTRANSFERASE 27 U/L (12-78); ALBUMIN 2.5 G/DL (3.4-5.0); ALBUMIN/GLOBULIN RATIO 0.7 (1.1-1.5); ALKALINE PHOSPHATASE 79 IU/L (46-116); ANION GAP 5 (8-16); ASPARTATE AMINO TRANSFERASE 41 U/L (10-37); BILIRUBIN,TOTAL 0.8 MG/DL (0.1-1.0); BLOOD UREA NITROGEN 22 MG/DL (7-18); BUN/CREATININE RATIO 28.6 (10.0-20.0); CALCIUM 9.6 MG/DL (8.5-10.1); CHLORIDE 106 MMOL/L (99-107); CREATININE 0.77 MG/DL (0.40-0.90); GLUCOSE 143 MG/DL (70-104); MAGNESIUM 2.5 MG/DL (1.5-2.4); POTASSIUM 3.8 MMOL/L (3.5-5.1); SODIUM 142 MMOL/L (135-145); TOTAL CARBON DIOXIDE 30.7 MMOL/L (24-32); TOTAL PROTEIN 6.3 G/DL (6.4-8.2); eGFR 74 ML/MIN
--- NOTE | 2022-08-24 06:49 | NUR ---
Problems reprioritized. Patient report given, questions answered & plan of care reviewed with Lorelei HENDERSON.
--- NOTE | 2022-08-24 06:49 | NUR ---
Called night hospitalist, advised of critical troponin. No new orders, continue to monitor.
--- NOTE | 2022-08-24 06:53 | NUR ---
Patient in room ORTHO 4020. I have received report from Gregoria and had the opportunity to ask questions and assume patient care.
[2022-08-24 07:13] LABS: ANISOCYTOSIS 3+; MICROCYTOSIS 1+; PLATELET ESTIMATE NORMAL; TOTAL CELLS COUNTED 100
[2022-08-24 07:17] LABS: ELLIPTOCYTES FEW; POLYCHROMASIA FEW
[2022-08-24] MEDS: K and/or MAG REPLACEMENT MC SCH ×2 (08:00→20:00)
[2022-08-24] MEDS: ARIPIPRAZOLE 10 MG TABLET PO SCH ×2 (08:00→12:47)
[2022-08-24] MEDS ORDERED: methylPREDNISolone sod succ 125mg/2ml vial IV SCH ×2 (08:00→17:20)
[2022-08-24] MEDS ORDERED: docusate sod 100mg capsule PO SCH (08:00)
[2022-08-24] MEDS: clopidogrel 75mg tablet PO SCH ×2 (08:00→12:48)
[2022-08-24] MEDS ORDERED: heparin, porcine 5000 units/ml vial SQ SCH (08:00)
[2022-08-24] MEDS: atorvastatin 20mg tablet PO SCH ×2 (08:00→12:47)
[2022-08-24] MEDS: ESCITALOPRAM OXALATE 5 MG TABLET PO SCH ×2 (08:00→12:47)
[2022-08-24] MEDS: aspirin 325mg tablet PO SCH ×2 (08:30→12:48)
[2022-08-24] MEDS: cefepime 2g/NS 100ml ADVANTAGE 100 ML IV SCH ×3 (09:40→17:39)
[2022-08-24 10:00] VITALS: BP 129/74
[2022-08-24] MEDS ORDERED: LIDOcaine 1% (10mg/ml) 2ml vial ONE (10:01)
[2022-08-24] MEDS ORDERED: verapamil 2.5 mg/ml inj IV ONE (10:01)
[2022-08-24] MEDS ORDERED: nitroGLYCERIN-Tridil 50MG/D5W 0 ML IV ONE (10:01)
[2022-08-24] MEDS ORDERED: midazolam 1 mg/ML 2ml injection ONE (10:01)
[2022-08-24] MEDS ORDERED: heparin 1,000unit/ml 10ml vial 0 ML ONE (10:01)
[2022-08-24] MEDS ORDERED: fentaNYL/PF 50MCG/1 ML 2ML syringe ONE (10:01)
[2022-08-24] MEDS ORDERED: iohexol 350MG/ML 100ml bottle IV ONE ×2 (10:02→16:24)
--- NOTE | 2022-08-24 10:23 | NUR ---
Patient went to logging rafter laborer.
[2022-08-24] MEDS ORDERED: LIDOcaine 1% 30ml preserv. free vial ONE (10:27)
--- NOTE | 2022-08-24 10:45 | NUR ---
Patient brought back from microbiology laboratory manager, unable to perform procedure as patient unable to tolerate laying flat at this time. Patient placed back on bi-pap.
--- NOTE | 2022-08-24 10:45 | NUR ---
Student documentation: Lesley student at [facility] have reviewed and agree with all interventions,medication administration per hospital policy, and assessments performed and documented by the student.
[2022-08-24] MEDS ORDERED: furosemide 40mg/4ml inj IV ONE (11:35)
[2022-08-24 12:45] VITALS: BP 129/89
--- NOTE | 2022-08-24 12:47 | NUR ---
Meds given late, waiting on patient procedures. Patient procedures cancelled so meds were able to be given per MD.
[2022-08-24 14:00] VITALS: BP 141/89
[2022-08-24] MEDS ORDERED: HYDROcodone/acetaminophen 10/325mg tab PO PRN (17:20)
[2022-08-24] MEDS: MESSAGE TO NURSING PO NR (17:22)
[2022-08-24 18:00] VITALS: BP 116/83
--- NOTE | 2022-08-24 18:20 | NUR ---
Patient in room ORTHO 4020. I have received report from BEATRIZ Moseley and had the opportunity to ask questions and assume patient care.
[2022-08-24] MEDS: heparin 25,000 UNIT/250ml bag 250 ML IV PRN (18:28)
--- NOTE | 2022-08-24 18:40 | NUR ---
Problems reprioritized. Patient report given, questions answered & plan of care reviewed with Felicia.
[2022-08-24] MEDS: Melatonin 3mg tablet PO SCH (21:17)
[2022-08-24] MEDS ORDERED: CefTRIAXone/D5W-Rocephin 1gm 50 ML IV SCH (22:00)
--- NOTE | 2022-08-24 22:28 | NUR ---
ER ID: [id number] MESSAGE: dr. Jimenez can you please call Gregoria at [phone] regarding your patient, Dorita Wilson in [phone] she and her daughter want to take her bipap off and stop the suffering/comfort care or something for anxiety. Thank you Gregoria [phone]
--- NOTE | 2022-08-24 23:00 | NUR ---
I was checking on my pt. who was i BIpap ,pt. ask me if I can call the doctor to get her off the Bipap because she can't take it anymore.Her daughter was in the room and she ask me what can I do to get the doctor to talked to her mom.I went and talked with my charge nurse and ask her to called .
[2022-08-24] MEDS ORDERED: scopolamine 1.5mg patch.TD72 (72-hour patch) TD SCH (23:35)
[2022-08-24] MEDS ORDERED: LORazepam 1 MG tablet PO PRN (23:35)
[2022-08-24] MEDS: morphine 10mg/0.5ml (conc. morphine) oral syringe PO PRN (23:56)
[2022-08-25] MEDS: LORazepam 2 mg/ml vial IV PRN ×7 (00:44→20:54)
[2022-08-25] MEDS ORDERED: VANCOMYCIN LEVEL IV ONE (02:30)
[2022-08-25] MEDS ORDERED: morphine 10mg/0.5ml (conc. morphine) oral syringe PO ONE ×2 (02:51→04:00)
[2022-08-25] MEDS: morphine 10mg/0.5ml (conc. morphine) oral syringe PO PRN ×13 (04:07→20:58)
--- NOTE | 2022-08-25 06:35 | NUR ---
Problems reprioritized. Patient report given, questions answered & plan of care reviewed with MEY Yip.
--- NOTE | 2022-08-25 07:19 | NUR ---
PAGER ID: [phone] MESSAGE: Pt Katie Kevin Rm [id number] can i place kurtz & change ativan and roxinal to q2hr fide [phone]
[2022-08-25] MEDS ORDERED: furosemide 20 MG/2 ML vial IV SCH (08:00)
[2022-08-25] MEDS ORDERED: PERFLUTREN PROTEIN-A MICROSPHR (Optison) 0.22 MG/ML 3ML VIAL IV ONE (09:05)
[2022-08-25] MEDS: MESSAGE TO NURSING PO NR (10:17)
--- NOTE | 2022-08-25 11:54 | NUR ---
Noted pt now DNR w/ comfort care w/ LBM 08/23 per EMR. Will continue to follow. Addendum: 08/25/22 at [address] Amended: Links added. Addendum: 08/25/22 at [address] Noted pt now DNR w/ comfort care w/ LBM 08/23 per EMR. Will continue to follow. Rec: 1. bowel care per rx
--- NOTE | 2022-08-25 12:45 | NUR ---
PAGER ID: [phone] MESSAGE: patricia lopez rm [id number] can we get roxanol and ativan more often? fide [phone]
[2022-08-25] MEDS ORDERED: hyoscyamine 0.125mg TAB.SUBL SL PRN ×2 (16:15→16:22)
[2022-08-25] MEDS ORDERED: LORazepam 1 MG tablet PO PRN (16:15)
--- NOTE | 2022-08-25 18:20 | NUR ---
Problems reprioritized. Patient report given, questions answered & plan of care reviewed with Chantal hammer.
--- NOTE | 2022-08-25 18:21 | NUR ---
Patient in room ORTHO 4020. I have received report from BEATRIZ Yip and had the opportunity to ask questions and assume patient care. Patient is sleeping comfortably, family at bedside. Comfort care initiated, BEATRIZ Ames and I will continue to monitor.
--- NOTE | 2022-08-25 22:20 | NUR ---
Notified Dr. Lofton of patient's ([phone]), will note in chart.
--- NOTE | 2022-08-25 22:30 | NUR ---
Spoke to Gillian at [facility] reference number [phone]. She stated not a candidate.
--- NOTE | 2022-09-26 10:42 | NUR ---
Case Management DC follow up: Patient .
== END 2022-08-25 22:30 | DRG 193 ==
LOC: ER 13:03 → ED HOLD 20:11 → ORTHO 4S 23:40
PROVIDERS: ADMIT Internal Medicine; ATTEND Internal Medicine
PROC: 5A09357 Assistance with Respiratory Ventilation, Less than 24 Consecutive Hours, Continuous Positive Airway Pressure (ICD-10-PCS; principal; 2022-08-23)
DX: J18.9 Pneumonia, unspecified organism (principal); I21.4 Non-ST elevation (NSTEMI) myocardial infarction; J96.21 Acute and chronic respiratory failure with hypoxia; J96.22 Acute and chronic respiratory failure with hypercapnia; J44.1 Chronic obstructive pulmonary disease with (acute) exacerbation; I50.30 Unspecified diastolic (congestive) heart failure; R65.10 Systemic inflammatory response syndrome (SIRS) of non-infectious origin without acute organ dysfunction; Z51.5 Encounter for palliative care; Z66 Do not resuscitate; E11.9 Type 2 diabetes mellitus without complications; I25.10 Atherosclerotic heart disease of native coronary artery without angina pectoris; I25.2 Old myocardial infarction; I27.20 Pulmonary hypertension, unspecified; I35.0 Nonrheumatic aortic (valve) stenosis; I50.9 Heart failure, unspecified; K21.9 Gastro-esophageal reflux disease without esophagitis; I46.9 Cardiac arrest, cause unspecified; E66.9 Obesity, unspecified; Z68.35 Body mass index [BMI] 35.0-35.9, adult; Z95.1 Presence of aortocoronary bypass graft; Z87.891 Personal history of nicotine dependence; Z90.49 Acquired absence of other specified parts of digestive tract; Z88.5 Allergy status to narcotic agent; Z88.6 Allergy status to analgesic agent
CPT/HCPCS: 36415; 36600; 71045; 71046; 71275; 80053; 82803; 82948; 83605; 83735; 83880; 84145; 84484; 85007; 85018; 85025; 85379; 85730; 87040; 87077; 87081; 87186; 93005; 93971; 94640; 94660; 94760; 99285; A4615; A4620; A6258; C1725; G0378; J0692; J1644; J1940; J2060; J2250; J2543; J2930; J3010; J3370; J3490; J7030; Q9967